=== PATIENT | male | born 1975 | race Caucasian/White ===

== ENCOUNTER 2022-04-09 09:19 | Outpatient (CLI) | payer OTHER, SELFPAY ==
[2022-04-09 11:00] LABS: PSA Screen* 0.52 ng/mL (0.10-4.00)
== END 2022-04-09 09:20 | disposition home or self-care (01) ==
PROVIDERS: PCP Family Medicine; Visit Provider Family Medicine
DX: Z12.5 Encounter for screening for malignant neoplasm of prostate (principal)
CPT/HCPCS: 84153

== ENCOUNTER 2023-04-04 11:00 | Outpatient (CLI) | payer OTHER, SELFPAY | END 2023-04-04 11:01 | disposition home or self-care (01) | LOC: NFLDREF 13:25 | PROVIDERS: PCP Family Medicine; Referring Provider Family Medicine; Visit Provider Family Medicine | DX: Z12.5 Encounter for screening for malignant neoplasm of prostate (principal) | CPT/HCPCS: 84153 ==

== ENCOUNTER 2024-08-25 07:36 | Outpatient (CLI) | payer OTHER, SELFPAY | END 2024-08-25 07:37 | disposition home or self-care (01) | LOC: NFLDREF 09-01 03:14 | PROVIDERS: PCP Family Medicine; Referring Provider Family Medicine; Visit Provider Family Medicine | DX: Z00.01 Encounter for general adult medical examination with abnormal findings (principal); R73.01 Impaired fasting glucose; Z80.42 Family history of malignant neoplasm of prostate; Z12.5 Encounter for screening for malignant neoplasm of prostate; Z13.6 Encounter for screening for cardiovascular disorders | CPT/HCPCS: 80061; 82947; G0103 ==

== ENCOUNTER 2024-10-12 15:23 | Outpatient (CLI) | payer OTHER, SELFPAY ==
--- NOTE | 2024-10-26 08:45 | W.PM.SLEEP ---
Sleep Study Details Details Interpreting Provider: Abhishek Date of Sleep Study: 10/12/24 Sleep Study Details: STUDY TYPE:? Home unattended ? BMI:? 25.5 ORDERING PROVIDER:? Abhishek INDICATION:? Concern about sleep apnea ? SLEEP SUMMARY:? 311 minutes monitored RESPIRATORY SUMMARY:? AHI 18.3 per rule 1A, 14.7 per CMS guideline Low oxygen 82 4.1% of study oxygen less than 90% Snoring 86.6% PERIODIC LIMB MOVEMENTS OF SLEEP:? Not recorded CARDIAC:? Range 39-89, mean 47.9 beats per minute IMPRESSION:? Moderate obstructive sleep apnea RECOMMENDATION: Treatment options include CPAP dental appliance and/or airway expansion surgery.
== END 2024-10-12 15:24 | disposition home or self-care (01) ==
PROVIDERS: PCP Family Medicine; Visit Provider Otolaryngology
DX: G47.33 Obstructive sleep apnea (adult) (pediatric) (principal)
CPT/HCPCS: 95806